=== PATIENT | male | born 1965 | race Caucasian/White ===

== ENCOUNTER 2017-12-05 14:26 | Emergency (ER) | payer OTHER ==
[~2017-12-05] VITALS: Ht 162.6 cm; Wt 99.8 kg
[~2017-12-05 14:26] MED LIST: ASA81 MG; COZAAR25 MG; CRESTOR5 MG; DICLOFENAC POTA50 MG PO; GLUCOPHAGE XR500 MG; HUMALOG MI100 UNIT/1; KETO10TA2 PO; ORPH100T PO; ORPHENADRINE C100 MG PO
[2017-12-05] MEDS ORDERED: COZAAR50 MG (15:02)
[2017-12-05] MEDS ORDERED: ASPIRIN EC81 MG (15:02)
[2017-12-05] MEDS ORDERED: GLUCOPHAGE XR500 MG (15:02)
[2017-12-05] MEDS ORDERED: ACEPHEN120 MG (15:02)
[2017-12-05] MEDS ORDERED: HUMALOG MI100 UNIT/1 (15:03)
[2017-12-05] MEDS ORDERED: CRESTOR10 MG (15:03)
[2017-12-05] MEDS ORDERED: TRILIPIX135 MG (15:03)
[2017-12-05] MEDS ORDERED: JARDIANCE10 MG (15:04)
== END 2017-12-05 18:00 | disposition home or self-care (01) ==
LOC: ER 14:26
DX: L02.415 Cutaneous abscess of right lower limb (principal); E11.9 Type 2 diabetes mellitus without complications

== ENCOUNTER 2018-04-23 21:50 | Emergency (ER) | payer OTHER ==
[~2018-04-23] VITALS: Ht 162.6 cm; Wt 91.6 kg
[~2018-04-23 21:50] MED LIST changes: +ACEPHEN120 MG; +ASPIRIN EC81 MG; +COZAAR50 MG; +CRESTOR10 MG; +JARDIANCE10 MG; +TRILIPIX135 MG
[2018-04-23] MEDS ORDERED: NEURONTIN800 MG (22:01)
== END 2018-04-23 22:14 | disposition home or self-care (01) ==
LOC: ER 21:50
DX: H66.92 Otitis media, unspecified, left ear (principal)

== ENCOUNTER 2019-01-15 20:11 | Emergency (ER) | payer OTHER ==
[~2019-01-15] VITALS: Ht 162.6 cm; Wt 99.8 kg
[~2019-01-15 20:11] MED LIST changes: +NEURONTIN800 MG
== END 2019-01-15 21:12 | disposition home or self-care (01) ==
LOC: ER 20:11
DX: M25.521 Pain in right elbow (principal)